=== PATIENT | female | born 1940 | race Hispanic/Latino ===

== ENCOUNTER 2016-07-14 13:19 | Outpatient (CLI) | payer MEDICARE ==
--- NOTE | 2016-07-14 16:42 | Magnetic Resonance Report ---
MRI BRAIN WITHOUT CONTRAST: 07/14/16 13:19:00 CLINICAL: Intracranial injury without loss of consciousness. TECHNIQUE: Axial diffusion, T1, T2, FLAIR, gradient echo T2*, and sagittal T1 sequences on a 1.5 [place] magnet. FINDINGS: The ventricles and sulci are slightly enlarged for age, particularly in the frontal and parietal lobes.. No restricted diffusion. Moderate bilateral multifocal white matter hyperintensities on FLAIR and T2. Old right basal ganglia lacunar infarct with extension into the right cochran radiata. Bilateral chronic pontine lacunar infarcts. The largest is on the right and measures 6 mm. No mass or mass effect. No hemorrhage, edema or extra-axial collection. Normal pituitary and optic chiasm. The cerebellum is normal. Intact vascular flow voids. Normal sinuses. The orbits, and soft tissues are normal. Normal calvarium and skull base. IMPRESSION: 1. No evidence of acute/subacute infarct or hemorrhage. 2. 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 3. Mild frontal and parietal lobe cortical atrophy. 4. Moderate chronic white matter microangiopathy. 5. No evidence of new or old hemorrhage.
== END 2016-07-14 13:20 | disposition home or self-care (01) ==
LOC: SPVIMAG 13:19
PROVIDERS: ATTEND Psychiatry & Neurology Neurology
DX: S06.890A Other specified intracranial injury without loss of consciousness, initial encounter (principal); I73.89 Other specified peripheral vascular diseases; G31.9 Degenerative disease of nervous system, unspecified; X58.XXXA Exposure to other specified factors, initial encounter; Y93.89 Activity, other specified; Y92.89 Other specified places as the place of occurrence of the external cause; Y99.8 Other external cause status
CPT/HCPCS: 70551

== ENCOUNTER 2018-01-27 11:26 | Day surgery (SDC) | payer MEDICARE ==
[~2018-01-27 11:26] MED LIST: AK-Dilate ONE; IOPIDINE ONE; IOPIDINE OS ONE; MYDRIACYL ONE; MYDRIACYL OS ONE; NEOFRIN OS ONE
[2018-01-27] MEDS ORDERED: MYDRIACYL OS ONE (11:42)
[2018-01-27] MEDS ORDERED: NEOFRIN OS ONE (11:42)
[2018-01-27] MEDS ORDERED: IOPIDINE OS ONE (11:42)
[2018-01-27 14:40] VITALS: BP 157/71
== END 2018-01-27 11:27 | disposition home or self-care (01) ==
LOC: OR 11:26
PROVIDERS: ATTEND Specialist
DX: H26.492 Other secondary cataract, left eye (principal); E78.00 Pure hypercholesterolemia, unspecified; G62.9 Polyneuropathy, unspecified; F17.200 Nicotine dependence, unspecified, uncomplicated; Z98.42 Cataract extraction status, left eye; Z98.41 Cataract extraction status, right eye; Z90.710 Acquired absence of both cervix and uterus; Z86.73 Personal history of transient ischemic attack (TIA), and cerebral infarction without residual deficits; Z98.890 Other specified postprocedural states

== ENCOUNTER 2018-02-10 11:08 | Day surgery (SDC) | payer MEDICARE ==
[2018-02-10] MEDS ORDERED: IOPIDINE ONE (11:14)
[2018-02-10] MEDS ORDERED: MYDRIACYL ONE (11:14)
[2018-02-10] MEDS ORDERED: NEOFRIN ONE (11:14)
[2018-02-10] MEDS ORDERED: NEOFRIN OS ONE (11:41)
[2018-02-10] MEDS ORDERED: IOPIDINE OD ONE (11:41)
[2018-02-10] MEDS ORDERED: MYDRIACYL OS ONE (11:41)
[2018-02-10 14:15] VITALS: BP 122/48
== END 2018-02-10 13:06 | disposition home or self-care (01) ==
LOC: OR 11:08
PROVIDERS: ATTEND Specialist
DX: H26.491 Other secondary cataract, right eye (principal); E78.00 Pure hypercholesterolemia, unspecified; G47.33 Obstructive sleep apnea (adult) (pediatric); E03.9 Hypothyroidism, unspecified; F32.9 Major depressive disorder, single episode, unspecified; Z79.899 Other long term (current) drug therapy; Z98.890 Other specified postprocedural states; Z98.42 Cataract extraction status, left eye; Z98.41 Cataract extraction status, right eye; Z90.710 Acquired absence of both cervix and uterus; Z86.2 Personal history of diseases of the blood and blood-forming organs and certain disorders involving the immune mechanism; Z86.73 Personal history of transient ischemic attack (TIA), and cerebral infarction without residual deficits; Z90.49 Acquired absence of other specified parts of digestive tract